=== PATIENT | female | born 1935 | race Caucasian/White ===

== ENCOUNTER 2016-11-20 16:20 | Emergency (ER) | payer MEDICARE, OTHER ==
[2016-11-20 17:12] LABS: BASOPHIL 0.5 % (0-2); EOSINOPHIL 1.6 % (0-7); HCT 43.5 % (37.0-47.0); HGB 14.5 g/dl (12.5-16.0); LYMPHOCYTE 30.3 % (15-48); MCH 29.4 pg (25.0-31.0); MCHC 33.3 g/dL (32.0-36.0); MCV 88.2 fL (78.0-100.0); MONOCYTE 10.1 % (0-12); MPV 9.5 fL (6.0-9.5); NEUTROPHIL 57.5 % (41-80); PLT 282 K/uL (150-400); RBC 4.93 M/uL (4.20-5.40); RDW 13.3 % (11.5-14.0); WBC 6.3 K/uL (4.0-10.5)
[2016-11-20 17:16] LABS: INR 0.93 (0.9-1.2); PROTHROMBIN TIME 12.1 SECONDS (11.7-14.0); PTT 28.4 SECONDS (23.2-31.4)
[2016-11-20 17:21] LABS: ALBUMIN 4.9 g/dL (3.4-4.8); BILIRUBIN - TOTAL 0.5 mg/dL (0.1-1.0); CREATININE 0.8 mg/dL (0.5-1.0); GLOBULIN (CALCULATION) 2.4 g/dL (2.2-4.2); POTASSIUM 4.2 mmol/L (3.5-5.1); TOTAL PROTEIN 7.3 g/dL (6.4-8.3)
[2016-11-20 17:27] LABS: BILIRUBIN NEGATIVE (NEGATIVE); BLOOD 3+ Ery/uL (NEGATIVE); CLARITY CLEAR (CLEAR); COLOR YELLOW (YELLOW); GLUCOSE (U) NORMAL (NORMAL); KETONE (U) NEGATIVE (NEGATIVE); LEUKOCYTES TRACE Leu/uL (NEGATIVE); NITRITE NEGATIVE (NEGATIVE); PROTEIN TRACE (LOW) mg/dL (NEGATIVE); SPECIFIC GRAVITY <=1.005 (1.001-1.030); UROBILINOGEN 0.2 mg/dL (0.2-1.0)
[2016-11-20 17:33] LABS: CALCIUM OXALATE CRYSTALS TRACE; SQUAMOUS EPITHELIAL CELLS RARE
== END 2016-11-20 18:45 | disposition home or self-care (01) ==
LOC: FER 16:20
PROVIDERS: Internal Medicine
DX: M47.816 Spondylosis without myelopathy or radiculopathy, lumbar region (principal); H93.19 Tinnitus, unspecified ear; R53.1 Weakness; R51 Headache; Z87.442 Personal history of urinary calculi
CPT/HCPCS: 36415; 70450; 71010; 72100; 80053; 81001; 84484; 85025; 85610; 85730; 93005